=== PATIENT | male | born 1990 | race Caucasian/White ===

== ENCOUNTER 2016-07-07 09:31 | Emergency (ER) | payer SELFPAY | END 2016-07-07 09:48 | disposition home or self-care (01) | LOC: FER 09:31 | DX: F19.10 Other psychoactive substance abuse, uncomplicated (principal); R11.2 Nausea with vomiting, unspecified; F17.200 Nicotine dependence, unspecified, uncomplicated; Z59.0 Homelessness; Z98.890 Other specified postprocedural states | CPT/HCPCS: 99283 ==

== ENCOUNTER 2020-08-02 14:28 | Emergency (ER) | payer OTHER ==
[~2020-08-02 14:28] MED LIST: ANUCORT-HC25 MG PR; WELLBUTRIN XL150 MG PO
[2020-08-02 14:52] LABS: BASOPHIL 0.2 % (0-2); EOSINOPHIL 0 % (0-5); LYMPHOCYTE 17.4 % (15-48); MCH 29.9 pg (25.0-31.0); MCV 87.7 fL (78.0-100.0); MONOCYTE 13.4 % (0-12); MPV 8.9 fL (6.0-9.5); NEUTROPHIL 68.7 % (41-80); NRBC 0; PLT 285 K/uL (150-400); RBC 5.36 M/uL (4.70-6.00); RDW 12.9 % (11.5-14.0); WBC 6.3 K/uL (4.0-10.5)
[2020-08-02 15:14] LABS: CREATININE 0.96 mg/dL (0.67-1.17); POTASSIUM 3.7 mmol/L (3.5-5.1)
[2020-08-02] MEDS ORDERED: ONDANSETRON ODT4 MG PO (15:54)
[2020-08-02] MEDS ORDERED: MEDROL 4MG DOSEP4 MG PO (15:54)
== END 2020-08-02 16:45 | disposition home or self-care (01) ==
LOC: FER 14:28
PROVIDERS: Emergency Medicine
DX: U07.1 COVID-19 (principal); F17.290 Nicotine dependence, other tobacco product, uncomplicated
CPT/HCPCS: 36415; 71045; 80048; 85025; 93005; J1885; J2405; J7030